=== PATIENT | female | born 1940 | race Caucasian/White ===

== ENCOUNTER → 2016-12-22 | Outpatient (CLI) | payer MEDICARE ==
--- NOTE | 2016-12-23 08:15 | CT ---
EXAM DESCRIPTION: Chest w/Contrast CLINICAL HISTORY: 76 years, Female, MALIGNANT NEOPLASM OF RIGHT BRONCHUS, NEOPLASM OF RIGHT BREAST COMPARISON: April 30, 2016 TECHNIQUE: Thin-section axial CT images are obtained during rapid bolus administration of nonionic IV contrast media. Reconstructed MPR images are created and reviewed as well. This exam was performed according to our departmental dose-optimization program, which includes automated exposure control, adjustment of the mA and/or kV according to patient size and/or use of iterative reconstruction technique. FINDINGS: Enhanced examination of the chest shows significant deterioration from prior study. A right-sided chemotherapy port remains in place and evidence of prior left mastectomy is noted. However small nodules in the anterior left upper lobe is unchanged in size but the more superior nodule directly behind the left anterior first rib has significantly increased in size consistent with progressive metastatic disease or neoplasm. New enlarged aorticopulmonary window and left hilar lymphadenopathy consistent with metastatic disease is apparent. Heterogeneous slightly enlarged appearance of the right lobe of the thyroid is stable and unchanged. Mild heterogeneity of the left lobe is noted. Definite supraclavicular or axillary lymphadenopathy is not apparent. Inflammatory appearance and coarsened markings surrounding the inferior right hilum and extending into the right lower lobe is little changed from previous study and may represent scarring from previous treatment or residual infiltrative change. Significant right hilar adenopathy or a distinct nodular mass within the right hilum or right lung is not apparent. No significant layering pleural effusion is seen. The visualized portion of the liver and upper abdomen is unremarkable with a normal appearance of the adrenal glands. A fold in the gallbladder fundus represents an anatomic variant. Moderate T11 and mild superior endplate T12 compression deformity is unchanged from April study there is a new focus of sclerosis adjacent to the superior endplate of T7 that was not evident on prior study and is at least minimally suspicious for possibility of a metastatic deposit. IMPRESSION: 1. Deterioration of the left chest with enlarging left upper lung field nodule now approximately 1.5 cm in size and just behind the anterior aspect of the first rib. Additionally aorticopulmonary window and left hilar enlarging lymphadenopathy consistent with metastatic disease noted. 2. Stable right lung with coarsened hilar and infrahilar markings extending in the right lower lobe likely representing chronic scarring without nodular metastatic disease or pleural effusion noted. 3. Two small focus of sclerosis in the superior aspect of the T7 vertebral body, not evident on prior studies and mildly suspicious for early bony metastatic disease. 4. Stable position of the right-sided chemotherapy port and prior left mastectomy. Electronically signed by: Faisal Raygoza MD 12/23/2016 8:14 AM CDT
== END | disposition home or self-care (01) ==
LOC: CT 08:50
PROVIDERS: ATTEND Internal Medicine Hematology & Oncology
DX: C34.91 Malignant neoplasm of unspecified part of right bronchus or lung (principal); C50.212 Malignant neoplasm of upper-inner quadrant of left female breast

== ENCOUNTER → 2017-01-28 | Outpatient (CLI) | payer MEDICARE | END | disposition home or self-care (01) | LOC: GMA 13:37 | PROVIDERS: ATTEND Nurse Practitioner Family | DX: R19.7 Diarrhea, unspecified (principal); R10.84 Generalized abdominal pain ==